=== PATIENT | female | born 2005 | race Caucasian/White ===

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

== ENCOUNTER 2024-03-22 00:22 | Emergency (ER) | payer OTHER ==
[~2024-03-22 00:22] MED LIST: CEPH500C2 PO; ONDA4TAB11 PO
== END 2024-03-22 04:01 | disposition left against medical advice (07) ==
LOC: ER 00:25
DX: Z53.21 Procedure and treatment not carried out due to patient leaving prior to being seen by health care provider (principal)

== ENCOUNTER 2024-08-10 00:09 | Emergency (ER) | payer OTHER ==
[~2024-08-10] VITALS: Ht 154.9 cm; Wt 81.6 kg
[2024-08-10 00:53] VITALS: TEMP 98.4
[2024-08-10] MEDS ORDERED: IBUPROFEN 600 MG TABLET ONE (00:56)
[2024-08-10] MEDS: IBUPROFEN 600 MG TABLET PO ONE (00:59)
[2024-08-10 01:50] VITALS: BP 108/64; O2SAT 98
== END 2024-08-10 01:50 | disposition home or self-care (01) ==
LOC: ER 00:21
DX: M25.512 Pain in left shoulder (principal); M54.2 Cervicalgia; M54.9 Dorsalgia, unspecified; V43.52XA Car driver injured in collision with other type car in traffic accident, initial encounter; Y93.89 Activity, other specified; Y92.89 Other specified places as the place of occurrence of the external cause; Y99.8 Other external cause status
CPT/HCPCS: 73030-TC